=== PATIENT | female | born 1950 | race Hispanic/Latino ===

== ENCOUNTER 2019-07-05 12:09 | Inpatient (IN) | payer MEDICARE ==
[2019-07-05] VITALS (8 sets, daily range): BP systolic 106–201; BP diastolic 58–87
[~2019-07-05] VITALS: Ht 154.9 cm; Wt 41.7 kg
[~2019-07-05 12:09] MED LIST: AMINOCAPROIC ACID 250 MG/ML 20 ML VIAL IV ONE; AMIODARONE HCL 50 MG/ML 3 ML VIAL IV ONE; BACITRACIN 50,000 UNIT VIAL IRRIG ONE; EPINEPHRINE 1 MG/ML AMPULE IVP ONE; ESMOLOL HCL 10 MG/ML 10 ML VIAL IVP ONE; FENTANYL CITRATE PF 50 MCG/1 ML 20ML VIAL IJ ONE; HEPARIN SODIUM 1000UNIT/ML 10ML VIAL IV ONE; IPRATROPIUM/ALBUTEROL SULFATE 3 ML SOLUTION IH ONE; LIDOCAINE PF 2% 5ML ABBOJECT IVP ONE; MIDAZOLAM HCL 1 MG/ML 2ML VIAL IVPB ONE; NITROGLYCERIN 50 MG/D5% WATER 1 BOT IV ONE; NOREPINEPHRINE BITARTRATE 1 MG/1 ML ML IV ONE; PROPOFOL 10 MG/ML 20ML VIAL IV ONE; PROTAMINE SULFATE 10 MG/ML 25ML VIAL IV ONE; ROCURONIUM BROMIDE 10MG/1ML 5ML VL IV ONE; ROPIVACAINE 0.5% 5MG/ML 30ML IJ ONE; SODIUM BICARB 8.4% 50ML SYRINGE IVP ONE; SODIUM CHLORIDE 0.9% 1000ML 1,000 ML IV ONE
--- NOTE | 2019-07-05 14:55 | NUR ---
ADMISSION PT RECEIVED FROM [facility] VIA EMS. TRANSFER FROM [facility] [place] TO HOSPITAL BY STAFF TOLERATED WELL. A/O X 3. NO SOB. NO DISTRESS NOTED. O2 NC @ 2L. DENIES CHEST PAIN OR DISCOMFORT. DENIES PALPITATIONS. TELE: SR 70s. MYNX TO RT GROIN. DSG DRY & INTACT. PUNCTURE SITE SOFT, NON-TENDER. NO BLEEDING, NO HEMATOMA NOTED. (+) RT WEAK PALPABLE POST TIBIAL PULSE. (+) LT WEAK PALPABLE PULSE. POST HEART CATH BEDREST COMPLETE. DENIES N/V AND/OR DIARRHEA. NPO STATUS REINFORCED. PT TO HAVE CABG BY DR ROLLINS TODAY. @ 1500 PROCEDURE FOR CABG REVIEWED. QUESTIONS ENCOURAGED & CLARIFIED. PT AGREES TO HAVING PROCEDURE DONE BY DR ROLLINS. CONSENT SIGNED @ THIS TIME. PT CAN'T RECALL HOME MEDICATIONS @ THIS TIME. ANXIOUS R/T PENDING CABG SX. ORIENTED TO RM. INSTRUCTED TO CALL FOR ASSISTANCE. CALL CHRIS W/IN REACH.
[2019-07-05] MEDS ORDERED: CEFAZOLIN SODIUM 1 GM VIAL IVP PRN (15:00)
[2019-07-05 15:27] LABS: HEMATOCRIT 23.7 % (36-48); MEAN CORPUSCULAR HGB CONC 33.2 g/dL (32.0-36.0); MEAN CORPUSCULAR VOLUME 87.4 fL (79-99); PLATELET COUNT (AUTO) 202 K/uL (130-400); RED BLOOD CELL COUNT(AUTO) 2.71 MIL/uL (4.00-5.50); RED CELL DISTRIBUTION WIDTH 20.1 % (11.0-15.5); WHITE BLOOD COUNT (AUTO) 6.8 K/uL (4.8-10.8)
[2019-07-05 15:30] LABS: ABG BASE EXCESS -1.3 mmol/L (-2.0-3.0); ABG HCO3 20.6 mmol/L (21.0-28.0); ABG OXYGEN SATURATION 96.6 % (95.0-99.0); ABG PCO2 28 mmHg (32-45)
[2019-07-05 15:41] LABS: HEMOGLOBIN A1C 8.3 % (4.0-6.0)
[2019-07-05 15:47] LABS: PARTIAL THROMBOPLASTIN TIME 28.6 SEC (26.3-35.5); PROTHROMBIN TIME 10.5 SEC (9.6-11.6)
[2019-07-05 15:51] LABS: ALBUMIN 2.3 g/dL (3.5-5.0); BILIRUBIN,TOTAL 0.7 mg/dL (0.2-1.0); CREATININE 0.8 mg/dL (0.5-1.5); TOTAL PROTEIN, SERUM 6.4 g/dL (6.0-8.3)
[2019-07-05 15:55] LABS: POTASSIUM 2.9 mmol/L (3.5-5.1)
--- NOTE | 2019-07-05 16:20 | NUR ---
STATUS PT TAKEN TO SX FOR CABG BY DR ROLLINS VIA BED. FAMILY @ BEDSIDE. TELE BRENNAN REMOVED.
[2019-07-05] MEDS ORDERED: CEFAZOLIN SODIUM 1 GM VIAL ONE (19:10)
[2019-07-05] MEDS ORDERED: OCTYL 2-CYANOACRYLATE 1 EACH TP ONE (19:24)
[2019-07-05] MEDS ORDERED: PAPAVERINE HCL 30 MG/ML 2ML VIAL ONE (19:25)
[2019-07-05] MEDS ORDERED: BACITRACIN 50,000 UNIT VIAL ONE (19:25)
[2019-07-05 19:26] LABS: ABG BASE EXCESS -4.7 mmol/L (-2.0-3.0); ABG HCO3 18.8 mmol/L (21.0-28.0); ABG OXYGEN SATURATION 99.2 % (95.0-99.0); ABG PCO2 28 mmHg (32-45)
[2019-07-05 20:12] LABS: ABG BASE EXCESS -6.6 mmol/L (-2.0-3.0); ABG HCO3 17.8 mmol/L (21.0-28.0); ABG PCO2 32 mmHg (32-45)
[2019-07-05] MEDS ORDERED: SODIUM BICARB 50MEQ 50ML VIAL ONE ×3 (20:13→20:46)
[2019-07-05] MEDS ORDERED: SODIUM CHLORIDE 0.9% 500ML 500 ML IV SCH (20:17)
[2019-07-05] MEDS ORDERED: MORPHINE SULFATE 4 MG/1ML SYG IV PRN (20:30)
[2019-07-05] MEDS ORDERED: ONDANSETRON HCL 4 MG/2 ML VIAL IV PRN (20:30)
[2019-07-05] MEDS ORDERED: POTASSIUM PHOS 15 mMOL+NS250ML 250 ML IV PRN (20:30)
[2019-07-05] MEDS ORDERED: SODIUM CHLORIDE 0.9% 250 ML IV PRN (20:30)
[2019-07-05] MEDS ORDERED: NITROGLYCERIN 50 MG/D5% WATER 250 BOT IV SCH (20:30)
[2019-07-05] MEDS ORDERED: PROPOFOL 1000 MG/100 ML 100 ML IV PRN (20:30)
[2019-07-05] MEDS ORDERED: INSULIN REGULAR, HUMAN 3ML 100 UNIT in SODIUM CHLORIDE 0.9% 99 ML IV SCH ×2 (20:30)
[2019-07-05] MEDS ORDERED: SODIUM CHLORIDE 0.9% 10 ML VIAL IVP PRN (20:30)
[2019-07-05] MEDS ORDERED: ACETAMINOPHEN 325 MG TAB PO PRN ×2 (20:30)
[2019-07-05] MEDS ORDERED: GLUCAGON 1MG KIT 1 MG ML IM PRN (20:30)
[2019-07-05] MEDS: SODIUM CHLORIDE 0.9% 1000ML 1,000 ML IV SCH (20:30)
[2019-07-05] MEDS ORDERED: EPINEPHRINE 8 MG in DEXTROSE 5%-WATER 250 ML IV PRN (20:30)
[2019-07-05] MEDS ORDERED: ALBUMIN (HUMAN) 5% 250 ML IV PRN (20:30)
[2019-07-05] MEDS ORDERED: MORPHINE SULFATE 2 MG/ML 1ML SYG IV PRN (20:30)
[2019-07-05] MEDS ORDERED: DEXTROSE 50%-WATER 50 ML DISP.SYRIN IV PRN (20:30)
[2019-07-05] MEDS ORDERED: AMINOCAPROIC ACID 15,000 MG in SODIUM CHLORIDE 0.9% 250 ML IV SCH (20:30)
[2019-07-05] MEDS ORDERED: NOREPINEPHRINE 4MG/NS 250ML 250 ML IV PRN (20:30)
[2019-07-05] MEDS ORDERED: SODIUM BICARB 50MEQ 50ML VIAL IV PRN (20:30)
[2019-07-05] MEDS ORDERED: ACETAMINOPHEN 650 MG SUPPOSITORY RC PRN (20:30)
[2019-07-05] MEDS: FAMOTIDINE/PF 20 MG/2 ML VIAL IV SCH (21:00)
[2019-07-05 21:33] LABS: ABG HCO3 22.5 mmol/L (21.0-28.0); ABG OXYGEN SATURATION 98.9 % (95.0-99.0); ABG PCO2 33 mmHg (32-45)
[2019-07-05 22:00] LABS: ABG BASE EXCESS -3.9 mmol/L (-2.0-3.0); ABG HCO3 20.5 mmol/L (21.0-28.0); ABG PCO2 35 mmHg (32-45)
[2019-07-05] MEDS ORDERED: Q-PUMP 1 EACH IRRIG SCH (22:00)
--- NOTE | 2019-07-05 22:30 | NUR ---
Patient arrived to R 213 at 2225 intubated and sedated accompanied by Dr. Matias. RIJ infusing Epinepherine, Levofed and Amacar. VSS. [address] draining into 2 atriums, Left and right pleural tubes into one atrium with 25 ML on arrival. Higuera in place from OR draining appropriately. Dr. Rivero came by to check on patient at 2300. No new orders given.
[2019-07-05 23:05] LABS: HEMATOCRIT 40.2 % (36-48); MEAN CORPUSCULAR HEMOGLOBIN 30.5 pg (27.0-33.0); MEAN CORPUSCULAR HGB CONC 33.9 g/dL (32.0-36.0); NUCLEATED RED BLOOD CELLS 0.1 % (0.0-0.19); PLATELET COUNT (AUTO) 151 K/uL (130-400); RED BLOOD CELL COUNT(AUTO) 4.46 MIL/uL (4.00-5.50); RED CELL DISTRIBUTION WIDTH 17.2 % (11.0-15.5); WHITE BLOOD COUNT (AUTO) 21.2 K/uL (4.8-10.8)
[2019-07-05 23:16] LABS: ABG BASE EXCESS -2.2 mmol/L (-2.0-3.0); ABG PCO2 32 mmHg (32-45)
[2019-07-05 23:21] LABS: INR 1.18 (0.85-1.15); PARTIAL THROMBOPLASTIN TIME 28.4 SEC (26.3-35.5); PROTHROMBIN TIME 12.3 SEC (9.6-11.6)
[2019-07-05 23:23] LABS: CREATININE 0.7 mg/dL (0.5-1.5); MAGNESIUM 1.2 mg/dL (1.80-2.40); PHOSPHORUS 3.9 mg/dL (2.5-4.9)
[2019-07-05] MEDS: POTASSIUM CHLORIDE 20MEQ/100ML 100 ML IV PRN (23:36)
[2019-07-06] VITALS (44 sets, daily range): BP systolic 82–174; BP diastolic 52–161
[2019-07-06 00:23] LABS: ABG BASE EXCESS -0.6 mmol/L (-2.0-3.0); ABG HCO3 22.1 mmol/L (21.0-28.0); ABG OXYGEN SATURATION 98.9 % (95.0-99.0); ABG PCO2 31 mmHg (32-45)
[2019-07-06] MEDS: CEFAZOLIN SODIUM 1 GM VIAL IV SCH ×3 (01:06→16:52)
[2019-07-06] MEDS: MAGNESIUM 2GM PREMIX 50ML 50 ML IV PRN (01:06)
[2019-07-06] MEDS: POTASSIUM CHLORIDE 20MEQ/100ML 100 ML IV PRN ×3 (01:07→08:57)
[2019-07-06 03:09] LABS: ABG BASE EXCESS 0.5 mmol/L (-2.0-3.0); ABG HCO3 22.7 mmol/L (21.0-28.0); ABG OXYGEN SATURATION 98.4 % (95.0-99.0); ABG PCO2 30 mmHg (32-45)
[2019-07-06 03:56] LABS: HEMATOCRIT 40.3 % (36-48); MEAN CORPUSCULAR HEMOGLOBIN 30.8 pg (27.0-33.0); MEAN CORPUSCULAR HGB CONC 34.4 g/dL (32.0-36.0); MEAN CORPUSCULAR VOLUME 89.7 fL (79-99); PLATELET COUNT (AUTO) 137 K/uL (130-400); RED BLOOD CELL COUNT(AUTO) 4.49 MIL/uL (4.00-5.50); RED CELL DISTRIBUTION WIDTH 17.2 % (11.0-15.5); WHITE BLOOD COUNT (AUTO) 18.6 K/uL (4.8-10.8)
[2019-07-06 04:09] LABS: INR 1.03 (0.85-1.15); PARTIAL THROMBOPLASTIN TIME 25.2 SEC (26.3-35.5); PROTHROMBIN TIME 10.8 SEC (9.6-11.6)
[2019-07-06 04:17] LABS: CREATININE 0.8 mg/dL (0.5-1.5); MAGNESIUM 2.6 mg/dL (1.80-2.40); POTASSIUM 4.3 mmol/L (3.5-5.1)
--- NOTE | 2019-07-06 05:49 | NUR ---
Patient continues to be intubated and lethargic. Opens eyes to command, but extremely weak. Flinches to painful stimuli but does not squeeze hands. Will continue to monitor.
[2019-07-06 06:04] LABS: ABG HCO3 24.4 mmol/L (21.0-28.0); ABG OXYGEN SATURATION 99.1 % (95.0-99.0); ABG PCO2 32 mmHg (32-45)
[2019-07-06 08:24] LABS: ABG BASE EXCESS 0.4 mmol/L (-2.0-3.0); ABG HCO3 23.7 mmol/L (21.0-28.0); ABG OXYGEN SATURATION 98.2 % (95.0-99.0); ABG PCO2 34 mmHg (32-45)
[2019-07-06] MEDS ORDERED: CALCIUM GLUCONATE 1 GM/10 ML VIAL IV ONE (08:53)
[2019-07-06] MEDS: CALCIUM GLUCONATE 1 GM in SODIUM CHLORIDE 0.9% 50 ML IV PRN (08:56)
[2019-07-06] MEDS: FUROSEMIDE 10 MG/ML 2ML VIAL IV SCH ×2 (08:56→20:26)
[2019-07-06] MEDS: FAMOTIDINE/PF 20 MG/2 ML VIAL IV SCH ×2 (08:56→20:26)
[2019-07-06] MEDS: ASPIRIN 325MG EC TAB 325 MG TABLET.DR PO SCH (09:28)
--- NOTE | 2019-07-06 09:44 | NUR ---
HOLD physical therapy evaluation today as per MARC Vale. Addendum: 07/06/19 at 0945 by FREDDY BLANCHARD PT PT Amended: Links added.
[2019-07-06] MEDS: SODIUM CHLORIDE 0.9% 1000ML 1,000 ML IV SCH (09:59)
[2019-07-06 10:08] LABS: ABG BASE EXCESS 0.8 mmol/L (-2.0-3.0); ABG HCO3 23.3 mmol/L (21.0-28.0); ABG OXYGEN SATURATION 99.1 % (95.0-99.0); ABG PCO2 32 mmHg (32-45)
--- NOTE | 2019-07-06 12:18 | NUR ---
RD NOTIFICATION DX: NON-ST. ELEVATION MYOCARDIAL INFARCTION. DIET: NPO. LBM: 07/04. SKIN INTACT. S/P CABG ON 07/05. PT REMAINS INTUBATED. PT SLEEPING DURING VISIT. PT RECOVERING FROM CABG PROCEDURE. OG TUBE IN PLACE. HOLD PO FEEDINGS UNTIL PT IS EXTUBATED AND STABLE PER NURSE. RD RECOMMENDS TO CONTINUE NPO, ADVANCE DIET TOLERATED WHEN MEDICALLY FEASIBLE. ADVANCE TO CLEAR LIQUIDS, FULL, LASTLY TO HEART HEALTHY, 60GMCCD. RD WILL PROVIDE HEART HEALTHY AND DIABETES DIET AND NUTRITION EDUCATION WHEN PT IS EXTUBATED AND STABLE. RD WILL CONTINUE TO MONITOR AND FOLLOW UP NEEDED. THANK YOU. Addendum: 07/06/19 at [address] Amended: Links added.
[2019-07-06 12:19] LABS: ABG BASE EXCESS 2.4 mmol/L (-2.0-3.0); ABG HCO3 25.8 mmol/L (21.0-28.0); ABG OXYGEN SATURATION 97.6 % (95.0-99.0); ABG PCO2 36 mmHg (32-45)
--- NOTE | 2019-07-06 13:24 | NUR ---
Patient reported that she was in the bathroom this AM, missed the commode and end up sitting on the floor.Patient is able to get in and out of bed with 3 liters of oxygen and demonstrated to patient and family member how to use rolling walker safely in the room or use the bedside commode for safety.No skilled PT intervention needed at this time.Endorse to Nursing. Addendum: 07/06/19 at 1328 by FREDDY BLANCHARD, PT PT Amended: Links added.
--- NOTE | 2019-07-06 13:58 | NUR ---
PT IS STILL DROWSY AND DOES NOT STAY AWAKE. SHE RESPONDS TO VOICE . NODS YES AND NO. THEN FALLS BACK TO SLEEP. SHE IS TOLERATING CPAP. ABG REVIEWED. STABLE. I HAVE SENT MESSAGE FOR DR ROLLINS TO CALL ME BACK
--- NOTE | 2019-07-06 14:30 | NUR ---
EXTUBATED- PT COMFORTABLE. AIRWAY PATENT. PLACED ON 40% COOL MIST
[2019-07-06 15:41] LABS: ABG BASE EXCESS 0.2 mmol/L (-2.0-3.0); ABG HCO3 24.5 mmol/L (21.0-28.0); ABG OXYGEN SATURATION 98.7 % (95.0-99.0); ABG PCO2 39 mmHg (32-45)
--- NOTE | 2019-07-06 15:47 | NUR ---
NO DISTRESS-ABG REVIEWED WNL. NODS YES AND NO TO QUESTIONS. EXTREMITIES WEAK.
--- NOTE | 2019-07-06 18:47 | NUR ---
PT NOW MORE AWAKE AND CAN SPEAK MORE CLEARLY. SHE IS MOVING ALL 4 EXTREMITIES. CONVERTED TO NASAL CANNULA 2L
--- NOTE | 2019-07-06 19:02 | NUR ---
HAND OFF REPORT GIVEN TO ANGEL LUIS TRAN
[2019-07-06] MEDS: TRAMADOL HCL 50 MG TABLET PO PRN (20:26)
[2019-07-06] MEDS: ATORVASTATIN CALCIUM 40 MG TABLET NG SCH (20:28)
[2019-07-07] VITALS (22 sets, daily range): BP systolic 125–190; BP diastolic 55–91
[2019-07-07 03:55] LABS: MEAN CORPUSCULAR HEMOGLOBIN 30.4 pg (27.0-33.0); MEAN CORPUSCULAR HGB CONC 33.5 g/dL (32.0-36.0); MEAN CORPUSCULAR VOLUME 90.6 fL (79-99); NUCLEATED RED BLOOD CELLS 0.1 % (0.0-0.19); PLATELET COUNT (AUTO) 116 K/uL (130-400); RED BLOOD CELL COUNT(AUTO) 3.76 MIL/uL (4.00-5.50); RED CELL DISTRIBUTION WIDTH 17.2 % (11.0-15.5); WHITE BLOOD COUNT (AUTO) 12.3 K/uL (4.8-10.8)
[2019-07-07 04:07] LABS: POTASSIUM 3.5 mmol/L (3.5-5.1)
[2019-07-07 04:47] LABS: PLATELET MORPHOLOGY COMMENT PLT CLUMPS PRESENT
[2019-07-07] MEDS: POTASSIUM CHLORIDE 20MEQ/100ML 100 ML IV PRN (06:41)
[2019-07-07] MEDS: FUROSEMIDE 20 MG TABLET PO SCH ×2 (08:55→15:54)
[2019-07-07] MEDS: FAMOTIDINE 20MG TAB 20 MG TAB PO SCH (08:55)
[2019-07-07] MEDS: ASPIRIN 325MG EC TAB 325 MG TABLET.DR PO SCH (08:55)
[2019-07-07] MEDS: TRAMADOL HCL 50 MG TABLET PO PRN ×3 (10:31→23:07)
[2019-07-07] MEDS: INSULIN HUMULIN R 100 UNIT/ML 3ML SQ SCH ×3 (11:18→21:00)
--- NOTE | 2019-07-07 13:16 | NUR ---
SUMMARY- PT IS STABLE. LEFT RADIAL A-LINE PARTIALLY DISLODGED AND REMOVED INTACT WITH NO HEMATOMA DEVELOPMENT. PENDING CV ROUNDS. CHEST TUBES INTACT WITH NO AIR LEAKS. PT IS MOVING ALL HER ARMS AND LEGS. FOLLOWS COMMANDS AND IS ORIENTED TO NAME. SPEECH IS CLEAR. PT UNABLE TO EAT SOLID FOODS DUE TO HAVING NO TEETH- CHANGED TO PUREED SHE TOOK CUP OF APPLESAUCE WELL. VS STABLE. WATSON PATENT. PHYSICAL THERAPY WORKED WITH HER TODAY BUT SHE IS WEAK AND DEBILITATED. COMFORTABLE . REPOSITIONED. NEEDS ASSISTANCE WITH ADL'S.
--- NOTE | 2019-07-07 19:05 | NUR ---
HAND OFF REPORT GIVEN TO ANGEL LUIS TRAN
--- NOTE | 2019-07-07 19:18 | NUR ---
cm note met with mariposa and with daughter, margaux. pt states she lives at home with children, including her adult daughter margaux. states she is independent with ambulation, has provider 3hrs daily. dtr drives her to [facility]. no dme.. dc plan is back to home. disucssed poss snf may be needed if she is still weak when closer to dc. pt agreeable if needed and ordered by md, but prefers home setting. Addendum: 07/07/19 at 1918 by EDDA OZUNA CM Amended: Links added.
[2019-07-07] MEDS ORDERED: CALCIUM GLUCONATE 1 GM in SODIUM CHLORIDE 0.9% 50 ML IV PRN (19:30)
--- NOTE | 2019-07-07 19:34 | NUR ---
rounded and saw the pt, updated with pt condition,v/s and meds and intake and output and abs.Received new order.
[2019-07-07] MEDS: ATORVASTATIN CALCIUM 40 MG TABLET NG SCH (19:58)
[2019-07-07] MEDS: CALCIUM GLUCONATE 1 GM in SODIUM CHLORIDE 0.9% 50 ML IV PRN (21:10)
[2019-07-08] VITALS (30 sets, daily range): BP systolic 129–184; BP diastolic 66–113
[2019-07-08 03:56] LABS: BASOPHILS % (AUTO) 0.5 % (0.0-5.0); HEMATOCRIT 32.9 % (36-48); LYMPHOCYTES % (AUTO) 20.6 % (21.0-51.0); MEAN CORPUSCULAR HGB CONC 33.7 g/dL (32.0-36.0); MONOCYTES % (AUTO) 7.5 % (3.0-13.0); NEUTROPHILS % (AUTO) 71.4 % (40.0-77.0); NUCLEATED RED BLOOD CELLS 0.2 % (0.0-0.19); PLATELET COUNT (AUTO) 145 K/uL (130-400); RED BLOOD CELL COUNT(AUTO) 3.58 MIL/uL (4.00-5.50); RED CELL DISTRIBUTION WIDTH 17.4 % (11.0-15.5); WHITE BLOOD COUNT (AUTO) 11.5 K/uL (4.8-10.8)
[2019-07-08 04:08] LABS: ALBUMIN 2.2 g/dL (3.5-5.0); BILIRUBIN,TOTAL 0.6 mg/dL (0.2-1.0); MAGNESIUM 1.4 mg/dL (1.80-2.40); TOTAL PROTEIN, SERUM 5.7 g/dL (6.0-8.3)
[2019-07-08 04:10] LABS: POTASSIUM 2.9 mmol/L (3.5-5.1)
[2019-07-08] MEDS: POTASSIUM CHLORIDE 20MEQ/100ML 100 ML IV PRN ×3 (04:34→12:58)
[2019-07-08] MEDS: MAGNESIUM 2GM PREMIX 50ML 50 ML IV PRN (04:34)
[2019-07-08] MEDS: TRAMADOL HCL 50 MG TABLET PO PRN ×3 (05:42→20:44)
[2019-07-08] MEDS: INSULIN HUMULIN R 100 UNIT/ML 3ML SQ SCH ×4 (06:12→20:45)
--- NOTE | 2019-07-08 06:59 | NUR ---
Bedside report given to incoming NOD using SBAr,all questions answered.Pt. remained stable,pending chest tubes to be removed today.
--- NOTE | 2019-07-08 07:39 | NUR ---
PT RECEIVED IN BED, AAOX TO SELF, D.O.B AND PLACE. SHE DOES NOT RECALL WHY SHE IS IN HOSPITAL. PT REORIENTED TO HOSPITAL STAY. RIGHT IJ NOTED WITH POTASSIUM INFUSING PER PROTOCOL. CHEST TUBES REMOVED PER MD ORDERS. NO COMPLICATIONS NOTED, PT ABLE TO COOPERATE WITH INSTRUCTIONS VERY WELL, CHEST TUBES REMOVED PER [facility] WITH ASSISTANCE BY ESTHER RN. PAIN PUMP REMOVED WITH CATHETER INTACT. DR. WELDON ROUNDED ON PATIENT, MD NOTED HIGH BLOOD PRESSURE. NEW ORDERS RECEIVED TO BE CARRIED OUT. WILL CONT TO MONITOR CLOSELY.
[2019-07-08] MEDS ORDERED: METOPROLOL TARTRATE 25 MG TAB PO SCH (09:00)
[2019-07-08] MEDS ORDERED: ENOXAPARIN SODIUM 30 MG/0.3 ML SQ SCH ×2 (09:00)
[2019-07-08] MEDS ORDERED: LOSARTAN 50 MG TABLET PO SCH (09:00)
[2019-07-08] MEDS: METOPROLOL TARTRATE 25 MG TAB PO SCH ×2 (09:51→20:39)
[2019-07-08] MEDS: FUROSEMIDE 20 MG TABLET PO SCH ×2 (09:52→16:51)
[2019-07-08] MEDS: ASPIRIN 81MG TAB.CHEW PO SCH (09:52)
[2019-07-08] MEDS: FAMOTIDINE 20MG TAB 20 MG TAB PO SCH (09:52)
[2019-07-08] MEDS: CLOPIDOGREL BISULFATE 75 MG TAB PO SCH (09:52)
--- NOTE | 2019-07-08 11:06 | NUR ---
PT STARTED YELLING OUT SHE WAS HAVING CHEST PAIN. PT WAS NOTED TO BE DIAPHORETIC, GLUCOSE CHECK DONE AT THIS TIME WITH LEVEL OF 248MG/DL. PT WAS ASSISTED BACK TO BED. STAT EKG DONE, LABS TO BE DRAWN. PT STATES SHE WANTS TO GO HOME. VS INITIAL WERE 162/87, HR 69. O2 ROOM AIR 99%. PT WAS PLACED ON O2 2 LITERS FOR. COMFORT. WILL CONT TO MONITOR CLOSELY.
[2019-07-08 11:23] LABS: HEMATOCRIT 36.2 % (36-48)
[2019-07-08 12:00] LABS: TROPONIN I 9.8 ng/mL (0.00-0.06)
--- NOTE | 2019-07-08 12:27 | NUR ---
CALLED DR. ACHARYA TO REPORT PT'S COMPLAINTS OF (YELLING) CHEST PAIN AND ELEVATED TROPONIN LEVEL. I INFORMED HIM OF EVENTS, PT WAS ASSISTED TO BEDSIDE CHAIR BY PHYSICAL THERAPY, PATIENT STARTED WITH C/O CHEST PAIN SHORTLY AFTER. I ALSO INFORMED HIM CHEST TUBES WERE REMOVED EARLY THIS MORNING. EKG REPORTED NSR WITH T WAVE ABNORMALITY, V/S REPORTED AND LABS REPORTED. INFORMED MD POTASSIUM WAS REPLACED. MD INSTRUCTED TO LEAVE PATIENT ALONE AND GIVE HER TRAMADOL. MD ASKED IF SHE HAD RECEIVED METOPROLOL THIS MORNING. I INFORMED HIM, SHE RECEIVED 25 MG PO, DOSE INCREASE BY DR. WELDON. NO NEW FURTHER ORDERS. I INQUIRED REGARDING NICOTINE PATCH D/T 3 PACK A DAY HABIT AND MD SAID NO. WILL CONT TO MONITOR CLOSELY. FAMILY AT BEDSIDE.
[2019-07-08 12:42] LABS: MAGNESIUM 2.1 mg/dL (1.80-2.40); POTASSIUM 3.7 mmol/L (3.5-5.1)
--- NOTE | 2019-07-08 12:51 | NUR ---
PATIENT IS CALM, NOT YELLING ANYMORE. FAMILY CONTINUES AT BEDSIDE.
--- NOTE | 2019-07-08 19:19 | NUR ---
PATIENT TRANSFERRED TO ROOM 208.
[2019-07-08] MEDS: ATORVASTATIN CALCIUM 40 MG TABLET NG SCH (20:39)
[2019-07-08] MEDS: ENOXAPARIN SODIUM 30 MG/0.3 ML SQ SCH (20:55)
[2019-07-09] VITALS (41 sets, daily range): BP systolic 111–153; BP diastolic 51–81
[2019-07-09 04:14] LABS: HEMATOCRIT 35.5 % (36-48); MEAN CORPUSCULAR HEMOGLOBIN 30.6 pg (27.0-33.0); MEAN CORPUSCULAR HGB CONC 33.5 g/dL (32.0-36.0); MEAN CORPUSCULAR VOLUME 91.4 fL (79-99); NUCLEATED RED BLOOD CELLS 0.1 % (0.0-0.19); PLATELET COUNT (AUTO) 158 K/uL (130-400); RED BLOOD CELL COUNT(AUTO) 3.89 MIL/uL (4.00-5.50); RED CELL DISTRIBUTION WIDTH 17.4 % (11.0-15.5)
[2019-07-09 04:36] LABS: CREATININE 0.8 mg/dL (0.5-1.5); POTASSIUM 3.4 mmol/L (3.5-5.1)
[2019-07-09] MEDS: INSULIN HUMULIN R 100 UNIT/ML 3ML SQ SCH ×4 (05:55→21:41)
[2019-07-09] MEDS: POTASSIUM CHLORIDE 20MEQ/100ML 100 ML IV PRN (06:01)
[2019-07-09] MEDS: CLOPIDOGREL BISULFATE 75 MG TAB PO SCH (08:21)
[2019-07-09] MEDS: FAMOTIDINE 20MG TAB 20 MG TAB PO SCH (08:21)
[2019-07-09] MEDS: LOSARTAN 50 MG TABLET PO SCH (08:21)
[2019-07-09] MEDS: ASPIRIN 81MG TAB.CHEW PO SCH (08:22)
[2019-07-09] MEDS: FUROSEMIDE 20 MG TABLET PO SCH ×2 (08:22→16:38)
[2019-07-09] MEDS: ENOXAPARIN SODIUM 30 MG/0.3 ML SQ SCH (08:23)
[2019-07-09] MEDS: METOPROLOL TARTRATE 25 MG TAB PO SCH ×3 (08:33→21:28)
[2019-07-09] MEDS: ATORVASTATIN CALCIUM 40 MG TABLET NG SCH (21:28)
[2019-07-10] VITALS (16 sets, daily range): BP systolic 104–148; BP diastolic 45–72
[2019-07-10 04:55] LABS: HEMATOCRIT 35.6 % (36-48); MEAN CORPUSCULAR HEMOGLOBIN 31.1 pg (27.0-33.0); MEAN CORPUSCULAR HGB CONC 33.5 g/dL (32.0-36.0); MEAN CORPUSCULAR VOLUME 92.8 fL (79-99); NUCLEATED RED BLOOD CELLS 0.1 % (0.0-0.19); PLATELET COUNT (AUTO) 177 K/uL (130-400); RED BLOOD CELL COUNT(AUTO) 3.84 MIL/uL (4.00-5.50); RED CELL DISTRIBUTION WIDTH 17.5 % (11.0-15.5); WHITE BLOOD COUNT (AUTO) 7.4 K/uL (4.8-10.8)
[2019-07-10 05:01] LABS: CREATININE 0.8 mg/dL (0.5-1.5); MAGNESIUM 1.6 mg/dL (1.80-2.40); POTASSIUM 3.2 mmol/L (3.5-5.1)
[2019-07-10] MEDS ORDERED: POTASSIUM CHLORIDE 20 MEQ ERTAB PO ONE (06:26)
[2019-07-10] MEDS: MAGNESIUM 2GM PREMIX 50ML 50 ML IV PRN (06:28)
[2019-07-10] MEDS: INSULIN HUMULIN R 100 UNIT/ML 3ML SQ SCH ×4 (06:29→21:00)
[2019-07-10] MEDS ORDERED: POTASSIUM CHLORIDE 20MEQ/100ML 100 ML IV PRN (06:30)
[2019-07-10] MEDS ORDERED: LIDOCAINE HCL-MPF 1% 2ML VIAL IV PRN (06:30)
[2019-07-10] MEDS ORDERED: POTASSIUM CHLORIDE 10% ELIXIR 20 MEQ/15 ML UDCUP PO PRN (06:30)
[2019-07-10] MEDS: LOSARTAN 50 MG TABLET PO SCH (08:24)
[2019-07-10] MEDS: ASPIRIN 81MG TAB.CHEW PO SCH (08:24)
[2019-07-10] MEDS: ENOXAPARIN SODIUM 30 MG/0.3 ML SQ SCH (08:24)
[2019-07-10] MEDS: FAMOTIDINE 20MG TAB 20 MG TAB PO SCH (08:25)
[2019-07-10] MEDS: CLOPIDOGREL BISULFATE 75 MG TAB PO SCH (08:25)
[2019-07-10] MEDS: FUROSEMIDE 20 MG TABLET PO SCH ×2 (08:25→16:25)
[2019-07-10] MEDS: METOPROLOL TARTRATE 25 MG TAB PO SCH ×3 (08:25→21:15)
[2019-07-10] MEDS: POTASSIUM CHLORIDE 20 MEQ ERTAB PO PRN ×2 (08:27→16:26)
--- NOTE | 2019-07-10 09:15 | NUR ---
AM NOTE Awake, alert, and oriented x3. Denies any chest pain or shortness of breath. Dr. Alfonso in to see pt, update given, new orders received and will carry out. Sinus mechanism in 80s. Call nino within reach. Side rails up.
--- NOTE | 2019-07-10 15:48 | NUR ---
DC PLAN VISITED WITH PATIENT. SPOKE TO PATIENT AT LENGTH REGARDING ORDER FOR SNF. PATIENT REFUSED. SAID READY TO GO HOME. ENCOURAGED TO WORK WITH PT AND TO DO I/S. VERBALIZED UNDERSTANDING. LET NURSES KNOW OF REFUSAL. Addendum: 07/10/19 at 1550 by LISA LEDEZMA RN CM Amended: Links added.
--- NOTE | 2019-07-10 15:48 | NUR ---
WILVER NOTIFICATION/ FOLLOW UP PT ON 75GM CCD/ PUREED DIET. LBM: 07/10. PO INTAKE 100% AND HAS GREAT APPETITE PER PT. SHE IS TOLERATING FEEDINGS WELL. NO VOMITING OF DIARRHEA [id number]. PT CLAIMS TO FEEL VERY NAUSEOUS AND DIZZY. PT LOOKS VERY FRAGILE AND SEEMS TO BE FEELING WEAK. WILVER RECOMMENDS TO CONTINUE CURRENT DIET. RECOMMEND ASSISTED FEEDINGS WITH MEALS. RD WILL CONTINUE TO MONITOR AND FOLLOW UP NEEDED. Addendum: 07/10/19 at [address] Amended: Links added.
[2019-07-10] MEDS: ATORVASTATIN CALCIUM 40 MG TABLET NG SCH (21:15)
[2019-07-11 00:23] VITALS: BP 130/71
[2019-07-11 04:06] VITALS: BP 153/72
[2019-07-11] MEDS: INSULIN HUMULIN R 100 UNIT/ML 3ML SQ SCH ×2 (06:46→11:27)
[2019-07-11 07:13] VITALS: BP_SYST 137; BP_SYST 149; BP_DIAS 68; BP_DIAS 82
[2019-07-11 07:16] LABS: MEAN CORPUSCULAR HEMOGLOBIN 30.8 pg (27.0-33.0); MEAN CORPUSCULAR HGB CONC 33.6 g/dL (32.0-36.0); MEAN CORPUSCULAR VOLUME 91.7 fL (79-99); NUCLEATED RED BLOOD CELLS 0.1 % (0.0-0.19); PLATELET COUNT (AUTO) 199 K/uL (130-400); RED BLOOD CELL COUNT(AUTO) 3.93 MIL/uL (4.00-5.50); RED CELL DISTRIBUTION WIDTH 17.5 % (11.0-15.5); WHITE BLOOD COUNT (AUTO) 7.2 K/uL (4.8-10.8)
[2019-07-11 07:23] LABS: CREATININE 0.9 mg/dL (0.5-1.5); MAGNESIUM 1.9 mg/dL (1.80-2.40); POTASSIUM 3.7 mmol/L (3.5-5.1)
[2019-07-11] MEDS: POTASSIUM CHLORIDE 20 MEQ ERTAB PO PRN (07:52)
[2019-07-11] MEDS: CLOPIDOGREL BISULFATE 75 MG TAB PO SCH (07:53)
[2019-07-11] MEDS: FUROSEMIDE 20 MG TABLET PO SCH (07:53)
[2019-07-11] MEDS: ASPIRIN 81MG TAB.CHEW PO SCH (07:53)
[2019-07-11] MEDS: LOSARTAN 50 MG TABLET PO SCH (07:53)
[2019-07-11] MEDS: FAMOTIDINE 20MG TAB 20 MG TAB PO SCH (07:53)
[2019-07-11] MEDS: ENOXAPARIN SODIUM 30 MG/0.3 ML SQ SCH (07:54)
[2019-07-11] MEDS: METOPROLOL TARTRATE 25 MG TAB PO SCH ×2 (07:55→13:45)
--- NOTE | 2019-07-11 08:10 | NUR ---
AM NOTE Awake, alert, and oriented x3. Refuses to go to rehab, Dr. Alfonso at bedside made aware. New orders received and will carry out. Sinus mechanism in 80s. Side rails up.
[2019-07-11 11:10] VITALS: BP 131/63
[2019-07-11 15:30] VITALS: BP 139/65
--- NOTE | 2019-07-11 16:00 | NUR ---
AMA Pt insists of leaving against medical advice, son at bedside states he will take her home now. Dr. Alfonso and powerhouse mechanic apprentice made aware. Vincident report will be made. Pt's sutures taken out and steristrips applied, dressed with 4x4 gauze and secured with tape, no oozing noted to sites. Instructed on sternal precautions and importance of incentive spirometer use, pt denies need for education. Pt has right metatarsal amputation so for her safety, she was taken to the lobby in no distress in wheelchair. All belongings given to family.
[2019-07-12] MEDS ORDERED: FUROSEMIDE 20 MG TABLET PO SCH (09:00)
[2019-07-12] MEDS ORDERED: POTASSIUM CHLORIDE 20 MEQ ERTAB PO SCH (09:00)
== END 2019-07-11 16:00 | disposition left against medical advice (07) | DRG 853 ==
LOC: 4CH 14:49 → 2CV 17:25 → 2CH 07-06 12:33 → 2BH 07-08 18:44 → 2DH 07-10 23:11 → 2BH 07-10 23:26
PROVIDERS: ADMIT Thoracic Surgery (Cardiothoracic Vascular Surgery); ATTEND Thoracic Surgery (Cardiothoracic Vascular Surgery)
PROC: 30233N1 Transfusion of Nonautologous Red Blood Cells into Peripheral Vein, Percutaneous Approach (ICD-10-PCS; 2019-07-05)
PROC: 02100Z9 Bypass Coronary Artery, One Artery from Left Internal Mammary, Open Approach (ICD-10-PCS; principal; 2019-07-05 19:00)
PROC: 021109W Bypass Coronary Artery, Two Arteries from Aorta with Autologous Venous Tissue, Open Approach (ICD-10-PCS; 2019-07-05 19:00)
PROC: 06BQ4ZZ Excision of Left Saphenous Vein, Percutaneous Endoscopic Approach (ICD-10-PCS; 2019-07-05 19:00)
DX: A41.9 Sepsis, unspecified organism (principal); I21.4 Non-ST elevation (NSTEMI) myocardial infarction; R65.21 Severe sepsis with septic shock; J18.9 Pneumonia, unspecified organism; D62 Acute posthemorrhagic anemia; I31.9 Disease of pericardium, unspecified; I25.10 Atherosclerotic heart disease of native coronary artery without angina pectoris; E11.9 Type 2 diabetes mellitus without complications; E78.5 Hyperlipidemia, unspecified; E11.51 Type 2 diabetes mellitus with diabetic peripheral angiopathy without gangrene; I10 Essential (primary) hypertension; Y92.89 Other specified places as the place of occurrence of the external cause; Z87.01 Personal history of pneumonia (recurrent); Z91.81 History of falling
CPT/HCPCS: 36415; 36430; 36600; 71045; 80048; 80053; 80061; 82330; 82435; 82550; 82803; 82947; 82948; 83036; 83605; 83735; 83874; 84100; 84132; 84295; 84484; 85014; 85018; 85025; 85027; 85347; 85610; 85730; 86850; 86900; 86901; 86922; 93005; 93880; 94002; 94003; 97039; A7048; C1729; G0378; J0171; J0282; J0610; J0690; J1644; J1650; J1815; J1940; J2001; J2250; J2440; J2704; J2720; J2795; J3010; J3475; J3480; J3490; J7030; J7040; P9016; P9045